=== PATIENT | male | born 1965 | race Caucasian/White ===

== ENCOUNTER 2023-06-21 12:08 | Day surgery (SDC) | payer BC ==
[2023-06-18 15:55] LABS: Hematocrit 41.9 % (39.6-49.0); Lymphocytes % 26.8 % (15.3-44.8); MCV 96.7 fL (80-100); MPV 8.5 fL (7.6-11.3); Platelets 169 thou/uL (152-406); RBC Red Blood Cell Count 4.34 M/uL (4.33-5.43)
[2023-06-18 16:01] LABS: Protime INR 1.07
[2023-06-18 16:10] LABS: Potassium 3.6 mEq/L (3.5-5.1)
[2023-06-18 16:23] LABS: Blood Morphology Comment NOT SEEN (NOT SEEN); Platelet Estimate ADEQ; White Blood Cell Scan OK (OK)
--- NOTE | 2023-06-18 22:39 | RAD REPORT ---
EXAM DESCRIPTION: RAD - Chest Pa And Lat (2 Views) - 06/18/2023 3:51 pm CLINICAL HISTORY: Pre op pending heart catheterization. Hypertension COMPARISON: No comparisons TECHNIQUE: PA and lateral views of the chest were obtained. FINDINGS: The lungs are clear. Heart size is normal and central vasculature is within normal limits. No pleural effusion or pneumothorax seen. No acute bony finding noted. IMPRESSION: No acute cardiopulmonary process.
--- NOTE | 2023-06-19 12:26 | EKG ---
Test Date: 2023-06-18 Test Time: 15:29:30 [employer] Plant Pump Operator Supervisor: BILLIE MEASUREMENT RESULTS: Intervals: Rate: 71 WY: 176 QRSD: 146 QT: 400 QTc: 434 [place]: P: 62 WY: 176 QRS: -5 T: 49 INTERPRETIVE STATEMENTS: Sinus rhythm with occasional premature ventricular complexes Right bundle branch block Abnormal ECG No previous ECG available for comparison Electronically Signed On 06-19-23 12:23:55 CDT by Art Landis
[2023-06-21 12:46] VITALS: TEMP 98
[2023-06-21] MEDS ORDERED: NA CHLORIDE 0.9% 500 ML ONE (14:41)
[2023-06-21] MEDS ORDERED: HEPA 1000U/500MLS 2,000 UNIT/1,000 ML BAG IV ONE (14:47)
[2023-06-21] MEDS ORDERED: LIDOCAINE 1% 20 ML MDV ONE (14:47)
[2023-06-21] MEDS ORDERED: FENTANYL CITR 100 MCG/2 ML ONE (14:48)
[2023-06-21] MEDS ORDERED: MIDAZOLAM HCL 2 MG/2 ML INJ ONE (14:49)
[2023-06-21] MEDS ORDERED: HEPARIN 5000 UNIT/ML 1 ML VIAL ONE (14:49)
[2023-06-21] MEDS ORDERED: NITROGLYCERIN/D5W 50 MG/250 ML BTL IV ONE (14:50)
[2023-06-21] MEDS ORDERED: HEPARIN 10,000 UNIT/10 ML VIAL IV ONE (14:50)
[2023-06-21] MEDS ORDERED: VERAPAMIL HCL 10 MG/4 ML VIAL IV ONE (14:50)
[2023-06-21 16:16] VITALS: O2SAT 95
[2023-06-21 16:22] VITALS: BP 125/71
--- NOTE | 2023-06-21 23:27 | OP ---
Date of Procedure: 06/21/2023 Surgeon: MACEY RITTER Procedures Performed: 1.Selective coronary angiogram. 2.Left heart catheterization. Indication: Chest pain with abnormal stress test suggestive of unstable angina. Access: Right radial artery 6-[place]atian closed with TR band. Complications: None. Bleeding: Less than 20 mL. Anesthesia: Total sedation time was 30 minutes. Description Of Procedure: After risks, benefits, and alternatives were explained, the patient agreed to procedure and signed informal consent. The patient was brought into the cardiac catheterization laboratory, prepped and draped in a sterile fashion. Then, I accessed right radial artery using pedi atric micropuncture kit, placed a 6-[place] Slender sheath, took 5-[place] 4 catheter into the ao rtic root, engaged left main, and took standard views and then engaged the RCA and took standard view s. The catheter was pushed over the wire into the LV, measured LVEDP, and pullback did not record an y gradient, and removed the catheter and the sheath, and placed TR band with good hemostasis. Findings: 1.Left main: Large and normal. 2.LAD: Large, normal, except mild 10% to 20% in the mid segment, normal diagonal branches. 3.Left circumflex is normal. 4.RCA is normal. 5.Elevated LVEDP at 20 mmHg. Conclusion: 1.Mild nonobstructive mid LAD stenosis, 10% to 20%. Rest of the arteries are normal. 2.Elevated LVEDP. Recommendations: Blood pressure control and diuretics. SR/MODL Voice ID: [id number] Report ID: [id number]
== END 2023-06-21 16:40 | disposition home or self-care (01) ==
LOC: CCL 12:08
PROVIDERS: ATTEND Internal Medicine
DX: I25.10 Atherosclerotic heart disease of native coronary artery without angina pectoris (principal); I10 Essential (primary) hypertension; I49.3 Ventricular premature depolarization; E78.2 Mixed hyperlipidemia; E11.9 Type 2 diabetes mellitus without complications; F17.210 Nicotine dependence, cigarettes, uncomplicated; Z79.899 Other long term (current) drug therapy
CPT/HCPCS: 93005; 85025; 80048; 36415; 83721; 85610; 85730; 71046; 93458; 76937; C1893; Q9966; J1644; J2001; J2250; J3010; J7040